=== PATIENT | female | born 1950 | race Caucasian/White ===

== ENCOUNTER 2024-06-27 09:24 | Day surgery (SDC) | payer MEDICARE, BC ==
[2024-06-27] MEDS: Proparacaine 0.5% Ophth Soln 15 ML Bottle EYELF ONE ×3 (07:15→10:20)
[2024-06-27] MEDS: Povidone-Iodine 5% Sterile Ophth Soln 30 ML Bottle EYELF ONE ×3 (07:17→10:21)
[2024-06-27] MEDS: Lidocaine 1% 30 ML SDV ONE ×2 (07:19→10:32)
[2024-06-27] MEDS: Vancomycin 500 MG SDV EYELF ONE ×2 (07:26→10:32)
[2024-06-27] MEDS: Apraclonidine 0.5% Ophth Soln 5 ML Bot EYELF ONE ×2 (07:26→10:35)
[2024-06-27] MEDS: Diclofenac Sodium 0.1% Ophth Soln 5 ML Bottle EYELF ONE ×2 (07:27→10:35)
[2024-06-27] MEDS: Dexamethasone/Neomycin/Polymyxin B Ophth Oint 3.5 GM Tube EYELF ONE ×2 (07:27→10:36)
[2024-06-27] MEDS ORDERED: Acetaminophen/Codeine 300-30 MG Tab PO PRN (09:45)
[2024-06-27] MEDS: Sodium Chloride 0.9% 10 ML Syringe FLUSH PRN (09:45)
[2024-06-27] MEDS: Moxifloxacin 0.5% Ophth Soln 3 ML Bottle EYELF ONE (09:45)
[2024-06-27] MEDS ORDERED: Ondansetron 4 MG/2 ML SDV IVPUSH PRN (09:45)
[2024-06-27] MEDS ORDERED: Acetaminophen 325 MG Tab PO PRN (09:45)
[2024-06-27] MEDS: Tropicamide 1% Ophth Soln 15 ML Bottle EYELF ONE (09:46)
[2024-06-27] MEDS: Phenylephrine 10% Ophth Soln 5 ML Bot EYELF ONE (09:46)
[2024-06-27] MEDS: Cataract Ophth Solution EYELF ONE (09:49)
[2024-06-27] MEDS: Timolol Maleate 0.5% Ophth Soln 5 ML Bottle EYELF ONE (09:49)
== END 2024-06-27 11:10 | disposition home or self-care (01) ==
LOC: DL.SDS 09:24
PROVIDERS: ATTEND Ophthalmology
DX: H25.812 Combined forms of age-related cataract, left eye (principal); J45.909 Unspecified asthma, uncomplicated; I10 Essential (primary) hypertension; F17.210 Nicotine dependence, cigarettes, uncomplicated; Z79.899 Other long term (current) drug therapy
CPT/HCPCS: A9270-GY; J3370; J3490; V2632

== ENCOUNTER 2024-07-04 07:43 | Day surgery (SDC) | payer MEDICARE, BC ==
[2024-07-04] MEDS ORDERED: Acetaminophen 325 MG Tab PO PRN (08:00)
[2024-07-04] MEDS ORDERED: Ondansetron 4 MG/2 ML SDV IVPUSH PRN (08:00)
[2024-07-04] MEDS ORDERED: Acetaminophen/Codeine 300-30 MG Tab PO PRN (08:00)
[2024-07-04] MEDS: Sodium Chloride 0.9% 10 ML Syringe FLUSH PRN (08:22)
[2024-07-04] MEDS: Proparacaine 0.5% Ophth Soln 15 ML Bottle EYERT ONE ×2 (08:24→08:58)
[2024-07-04] MEDS: Moxifloxacin 0.5% Ophth Soln 3 ML Bottle EYERT ONE (08:25)
[2024-07-04] MEDS: Povidone-Iodine 5% Sterile Ophth Soln 30 ML Bottle EYERT ONE ×2 (08:25→08:58)
[2024-07-04] MEDS: Tropicamide 1% Ophth Soln 15 ML Bottle EYERT ONE (08:26)
[2024-07-04] MEDS: Timolol Maleate 0.5% Ophth Soln 5 ML Bottle EYERT ONE (08:27)
[2024-07-04] MEDS: Phenylephrine 10% Ophth Soln 5 ML Bot EYERT ONE (08:27)
[2024-07-04] MEDS: Cataract Ophth Solution EYERT ONE (08:28)
[2024-07-04] MEDS: Dexamethasone/Neomycin/Polymyxin B Ophth Oint 3.5 GM Tube EYERT ONE (08:58)
[2024-07-04] MEDS: Apraclonidine 0.5% Ophth Soln 5 ML Bot EYERT ONE (08:58)
[2024-07-04] MEDS: Diclofenac Sodium 0.1% Ophth Soln 5 ML Bottle EYERT ONE (08:58)
[2024-07-04] MEDS: Lidocaine 1% 30 ML SDV ONE (09:09)
[2024-07-04] MEDS: Vancomycin 500 MG SDV EYERT ONE (09:10)
== END 2024-07-04 09:44 | disposition home or self-care (01) ==
LOC: DL.SDS 07:43
PROVIDERS: ATTEND Ophthalmology
DX: H25.811 Combined forms of age-related cataract, right eye (principal); I10 Essential (primary) hypertension; F17.210 Nicotine dependence, cigarettes, uncomplicated; Z79.899 Other long term (current) drug therapy; Z88.8 Allergy status to other drugs, medicaments and biological substances; Z91.040 Latex allergy status
CPT/HCPCS: 66984; A9270; J3370; V2632; J3490